=== PATIENT | male | born 1945 | race Caucasian/White ===

== ENCOUNTER → 2018-12-25 | Outpatient (CLI) | payer OTHER ==
--- NOTE | 2018-12-25 15:52 | PCVCIMAG ---
EXAM: BILATERAL SUPERFICIAL VENOUS DUPLEX INDICATION: Leg pain and swelling. FINDINGS: Right leg: No thrombus in the common femoral, main femoral, or popliteal veins. These veins are compressible. Right Great Saphenous Vein: At the saphenofemoral junction the diameter is 7.3 mm, in the mid thigh it is 4.5 mm, and in the calf it is 5.7 mm. There is not significant venous insufficiency/reflux throughout. Venous insufficiency/reflux duration is 0.4 seconds. Right Small Saphenous Vein: At the saphenopopliteal junction the diameter is 4.3 mm, and in the calf it is 6.2 mm. There is not significant venous insufficiency/reflux throughout. Venous insufficiency/reflux duration is 0.3 seconds. There is not a cranial extension present. Left leg: No thrombus in the common femoral, main femoral, or popliteal veins. These veins are compressible. Left Great Saphenous Vein: At the saphenofemoral junction the diameter is 7.0 mm, in the mid thigh it is 7.3 mm, and in the calf it is 6.0 mm. There is not significant venous insufficiency/reflux throughout. Venous insufficiency/reflux duration is 0 seconds. Left Small Saphenous Vein: At the saphenopopliteal junction the diameter is 3.4 mm, and in the calf it is 6.0 mm. There is not significant venous insufficiency/reflux throughout. Venous insufficiency/reflux duration is 0 seconds. There is not a cranial extension present. IMPRESSION: Right Great Saphenous Vein: No significant venous insufficiency/reflux is present as noted above. Right Small Saphenous Vein: No significant venous insufficiency/reflux is present as noted above. Left Great Saphenous Vein: No significant venous insufficiency/reflux is present as noted above. Left Small Saphenous Vein: No significant venous insufficiency/reflux is present as noted above. Incidental note is made of venous insufficiency/reflux in the right common femoral vein with duration of 2.0 seconds. If patient has significant leg swelling consideration for intravascular ultrasound evaluation of the pelvic veins may be of value. LOC:[id number]
--- NOTE | 2018-12-25 15:58 | PCVCIMAG ---
EXAM: BILATERAL LOWER EXTREMITY ARTERIAL DUPLEX INDICATION: Peripheral Arterial Disease. Leg pain. Nonhealing ulcer right anterior lateral lower leg. FINDINGS: Right Leg: Common femoral and profunda femoral arteries are patent. Superficial femoral artery and popliteal artery are patent. 90% stenosis proximal anterior tibial artery with occlusion of the mid/distal vessel. Peroneal artery and posterior tibial arteries are patent. Left Leg: Common femoral and profunda femoral arteries are patent. Superficial femoral artery and popliteal artery are patent. The anterior tibial, peroneal, and posterior tibial arteries are patent. 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 No flow limiting stenosis in the left lower extremity. The patient continues to have delayed healing with optimal wound care consideration for angiography may be of value. LOC:[id number]
== END | disposition home or self-care (01) ==
LOC: PCVCIMAG 12:44
PROVIDERS: ATTEND Emergency Medicine
DX: I70.201 Unspecified atherosclerosis of native arteries of extremities, right leg (principal); L97.919 Non-pressure chronic ulcer of unspecified part of right lower leg with unspecified severity; L98.499 Non-pressure chronic ulcer of skin of other sites with unspecified severity; I87.2 Venous insufficiency (chronic) (peripheral)
CPT/HCPCS: 93925; 93970